=== PATIENT | male | born 1950 ===

== ENCOUNTER 2021-01-24 03:47 | Emergency (ER) | payer OTHER ==
[~2021-01-24] VITALS: Ht 188 cm; Wt 145.0 kg
[2021-01-24] MEDS ORDERED: ONDANSETRON 2MG/ML, 2ML ONE (04:55)
[2021-01-24] MEDS ORDERED: ONDANSETRON 2MG/ML, 2ML IVPush ONE (05:00)
[2021-01-24] MEDS ORDERED: SODIUM CHLORIDE 0.9% 1,000ML IVBOLUS ONE (05:00)
--- NOTE | 2021-01-24 05:23 | NUR ---
PT CLEANSED OF BM AND ON BED SIDE CAMODE. SHEETS CHANGED. PT PLACED IN ADULT DIAPER. STOOL SAMPLE COLLECTED
--- NOTE | 2021-01-24 05:25 | NUR ---
LAB AT BEDSIDE.
[2021-01-24 05:39] LABS: MEAN CORPUSCULAR HGB CONC 33.2 g/dL (33.2-36.2); PLATELET COUNT 217 x10^3/uL (130-400); RED BLOOD COUNT 5.03 x10^6/uL (4.38-5.82); RED CELL DISTRIBUTION WIDTH 14.8 % (9.4-14.8)
[2021-01-24 05:54] LABS: ALANINE AMINOTRANSFERASE 30 U/L (12-78); ALBUMIN 3.5 g/dL (3.4-5.0); ANION GAP 4 mmol/L (5-15); CALCIUM 8.7 mg/dL (8.5-10.1); CHLORIDE 109 mmol/L (98-107); CREATININE 1.34 mg/dL (0.7-1.3)
[2021-01-24 05:58] LABS: ALKALINE PHOSPHATASE 60 U/L (45-117); BILIRUBIN,TOTAL 0.7 mg/dL (0.2-1.0); TOTAL PROTEIN 7.4 g/dL (6.4-8.2); TROPONIN I < 0.015 ng/mL (0.000-0.045)
[2021-01-24 06:11] LABS: CLOSTRIDIUM DIFFICILE ANTIGEN NEGATIVE; CLOSTRIDIUM DIFFICILE TOXIN NEGATIVE (Negative)
[2021-01-24 06:11] LABS: BANDS%(MANUAL) 6 % (0-7); EOS#(MANUAL) 0.37 x10^3/uL (0.0-0.4); EOS% (MANUAL) 2 % (1-7); LYMPH#(MANUAL) 1.47 x10^3/uL (1-3.4); LYMPHS% (MANUAL) 8 % (22-44); MONOS#(MANUAL) 1.47 x10^3/uL (0.3-2.7); MONOS% (MANUAL) 8 % (2-9); SEG#(MANUAL) 13.98 x10^3/uL (1.8-6.8); SEGS% (MANUAL) 76 % (42-75)
[2021-01-24 06:12] LABS: <PLATELET ESTIMATE> ADEQUATE; <PLT MORPHOLOGY> NORMAL PLT MORPH; ANISOCYTOSIS 1+; OVALOCYTES 1+; POLYCHROMASIA 1+
--- NOTE | 2021-01-24 06:44 | NUR ---
CARE TRANSFERED. REPORT GIVEN TO SUBHA CORRIGAN
[2021-01-24] MEDS ORDERED: OMNIPAQUE 350 MG/ML, 100ML BOTTLE ONE (07:01)
--- NOTE | 2021-01-24 07:10 | NUR ---
PATIENT IN [facility] TALKING ON PHONE, NADN, CONNECTED TO MONITOR, VSS, CALL LIGHT WITHIN REACH. WAITING FOR CT SCAN.
--- NOTE | 2021-01-24 08:11 | NUR ---
PATIENT RESTING IN [facility], CONNECTED TO MONITOR, VSS, CALL LIGHT WITHIN REACH. PATIENT UP FOR RECHECK.
--- NOTE | 2021-01-24 09:04 | NUR ---
REPORT GIVEN TO SUBHA LOPEZ FOR TRANSFER OF PATIENT CARE.
--- NOTE | 2021-01-24 09:30 | NUR ---
PT REC'VD DISCHARGE INSTRUCTIONS AND EDUCATION. PT RESISTANT TO THE INFORMATION DUE TO NOT WANTING SURGERY. PT HAD NO FURTHER QUESTIONS.
[2021-01-24 10:20] VITALS: BP 139/66
--- NOTE | 2021-01-24 10:26 | NUR ---
PTS PRESENT. PT IN WHEELCHAIR TO DC AREA.
== END 2021-01-24 10:59 | disposition home or self-care (01) ==
LOC: ED 09:55
DX: K52.9 Noninfective gastroenteritis and colitis, unspecified (principal); I10 Essential (primary) hypertension; E11.9 Type 2 diabetes mellitus without complications
CPT/HCPCS: 36415; 74177; 80053; 83690; 84484; 85025; 87324; 93005; 96361; 96374; 99285; J2405; J7030; Q9967